=== PATIENT | male | born 1955 ===

== ENCOUNTER 2022-02-05 15:11 | Emergency (ER) | payer OTHER ==
[~2022-02-05] VITALS: Ht 175.3 cm; Wt 83.9 kg
[2022-02-05] MEDS ORDERED: QUINAPRIL HCL10 MG PO (15:53)
== END 2022-02-05 19:14 | disposition home or self-care (01) ==
LOC: ER 15:11
DX: S69.91XA Unspecified injury of right wrist, hand and finger(s), initial encounter (principal); S29.9XXA Unspecified injury of thorax, initial encounter; W01.0XXA Fall on same level from slipping, tripping and stumbling without subsequent striking against object, initial encounter; Y93.9 Activity, unspecified; Y92.59 Other trade areas as the place of occurrence of the external cause